=== PATIENT | male | born 1980 | race Caucasian/White ===

== ENCOUNTER 2024-12-11 09:41 | Emergency (ER) | payer MEDICAID, OTHER ==
[~2024-12-11] VITALS: Ht 180.3 cm; Wt 104.3 kg
[2024-12-11] MEDS: IV NS 0.9% 1,000 ML BAG IV ONE (10:00)
[2024-12-11 10:27] LABS: BASOPHILS # (AUTO) 0.2 K/uL (0.0-0.2); BASOPHILS % (AUTO) 2.8 % (0.0-2.0); EOSINOPHILS # (AUTO) 0.2 K/uL (0.0-0.7); EOSINOPHILS % (AUTO) 2.5 % (0.0-6.0); HEMATOCRIT 45 % (39-51); HEMOGLOBIN 14.6 g/dL (13.5-17.5); LYMPHOCYTES # (AUTO) 1.2 K/uL (0.8-4.8); LYMPHOCYTES % (AUTO) 14.6 % (20.0-44.0); MEAN CORPUSCULAR HEMOGLOBIN 25 PG (26.0-33.0); MEAN CORPUSCULAR HGB CONC 32 g/dl (31.0-36.0); MEAN CORPUSCULAR VOLUME 78 fL (80-96); MONOCYTES # (AUTO) 0.6 K/uL (0.1-1.30); MONOCYTES % (AUTO) 6.8 % (2.0-12.0); NEUTROPHILS # (AUTO) 6.1 K/uL (1.8-8.9); NEUTROPHILS % (AUTO) 73.3 % (43.0-81.0); PLATELET COUNT (AUTO) 278 K/uL (150-450); RED BLOOD CELL COUNT(AUTO) 5.79 MIL/uL (4.5-6.0); RED CELL DISTRIBUTION WIDTH 14.9 % (11.5-15.0); WHITE BLOOD COUNT (AUTO) 8.3 K/uL (4.3-11.0)
[2024-12-11] MEDS: ONDANSETRON HCL/PF 4 MG/2 ML VIAL IV ONE (10:30)
[2024-12-11] MEDS: KETOROLAC TROMETHAMINE 15 MG/ML VIAL IV ONE ×2 (10:30→12:36)
[2024-12-11 10:32] LABS: CALCIUM, SERUM 9.2 mg/dL (8.5-10.1); CREATININE 1.2 mg/dL (0.6-1.3); POTASSIUM 4.3 mmol/L (3.5-5.1)
[2024-12-11 10:52] LABS: ALBUMIN 4.3 g/dL (3.4-5.0); BILIRUBIN,DIRECT 0.1 mg/dL (0.0-0.2); BILIRUBIN,TOTAL 0.7 mg/dL (0.2-1.0); TOTAL PROTEIN, SERUM 8.6 g/dL (6.4-8.2)
[2024-12-11] MEDS ORDERED: ONDANSETRON HCL/PF 4 MG/2 ML VIAL ONE (10:58)
[2024-12-11] MEDS ORDERED: KETOROLAC TROMETHAMINE 15 MG/ML VIAL ONE ×2 (10:58→12:27)
[2024-12-11 11:26] LABS: APPEARANCE,URINE CLEAR (CLEAR); BILIRUBIN,URINE Negative (NEGATIVE); BLOOD, URINE Large Ery/uL (NEGATIVE); COLOR,URINE YELLOW (YELLOW); KETONES,URINE Negative (NEGATIVE); LEUKOCYTE ESTERASE ,URINE Negative (NEGATIVE); PH,URINE 5.5 (5.0-8.0); PROTEIN,URINE 30 mg/dl (NEGATIVE); UGLUCOSE Negative (NEGATIVE); UROBILINOGEN,URINE 0.2 EU/dL (0.2)
[2024-12-11 11:29] LABS: NITRITE, URINE NEGATIVE (NEGATIVE)
[2024-12-11 12:01] LABS: ADD URINE CULTURE NO; BACTERIA,URINE Rare /HPF (None Seen); SQUAMOUS EPITHELIAL CELL,UR 0-2 /HPF (None Seen); WBC,URINE 0-2 /HPF (0-3)
[2024-12-11 12:03] LABS: URIC ACID CRYSTALS,URINE Moderate /HPF (None Seen)
[2024-12-11] MEDS ORDERED: TAMS-12 PO (12:18)
[2024-12-11] MEDS ORDERED: ONDA4TAB5 PO (12:18)
[2024-12-11] MEDS ORDERED: IBUP-1955 PO (12:18)
[2024-12-11] MEDS ORDERED: HYDR-4303 PO (12:18)
[2024-12-11] MEDS ORDERED: FENTANYL PF 100MCG/2ML AMPUL ONE (12:28)
[2024-12-11] MEDS: FENTANYL PF 100MCG/2ML AMPUL IV ONE (12:38)
[2024-12-11 12:55] VITALS: BP 132/84; TEMP 98.6; O2SAT 97
== END 2024-12-11 12:56 | disposition home or self-care (01) ==
LOC: ER 10:03
DX: R11.0 Nausea (principal); N13.2 Hydronephrosis with renal and ureteral calculous obstruction; R10.84 Generalized abdominal pain
CPT/HCPCS: 99285; 96374; 76770; 96375; 96361; 96376; 85025; 80048; 83690; 80076; 81001; 36415; J1885 ×2; J3010; J2405; J7030